=== PATIENT | female | born 1970 | race Caucasian/White ===

== ENCOUNTER 2017-09-05 07:28 | Day surgery (SDC) | payer MEDICAID ==
[2017-09-05] MEDS ORDERED: FENTAnyl 50 MCG/ML VIAL ×2 (09:57→14:34)
[2017-09-05] MEDS ORDERED: DEXAMETHASONE 4 MG/ML 1 ML INJ ×2 (10:11→14:13)
[2017-09-05] MEDS ORDERED: ONDANSETRON 4 MG INJ ×2 (10:12→14:13)
[2017-09-05 11:17] LABS: ADD MAN DIFF? NO
[2017-09-05 11:20] LABS: WHITE BLOOD COUNT 7.9 10^3/ul (4.8-10.8)
[2017-09-05 11:20] LABS: BASOPHILS % 0.4 % (0.0-2.0); EOSINOPHILS # 0.1 10^3/ul (0.0-0.5); HEMOGLOBIN 10.7 g/dl (12.0-16.0); LYMPHOCYTES # 2.7 10^3/ul (0.8-2.9); LYMPHOCYTES % 34.6 % (15.0-51.0); MEAN CORPUSCULAR HEMOGLOBIN 22.7 pg (29.0-33.0); MEAN CORPUSCULAR HGB CONC 31.5 g/dl (32.0-37.0); MEAN PLATELET VOLUME 9.3 fl (7.4-10.4); MONOCYTE # 0.4 10^3/ul (0.3-0.9); MONOCYTES % 5.5 % (0.0-11.0); NEUTROPHIL # 4.6 10^3/ul (1.6-7.5); NEUTROPHILS % 58.2 % (39.0-77.0); PLATELET COUNT 384 10^3/UL (140-415); RED BLOOD COUNT 4.72 10^6/ul (4.20-5.40); RED CELL DISTRIBUTION WIDTH 17.2 % (11.5-14.5)
[2017-09-05 11:38] LABS: ALANINE AMINOTRANSFERASE 23 IU/L (13-69); ALBUMIN 3.7 g/dl (3.3-4.9); ALBUMIN/GLOBULIN RATIO 0.97; ALKALINE PHOSPHATASE 74 IU/L (42-121); ANION GAP 14 (8-16); ASPARTATE AMINO TRANSFERASE 20 IU/L (15-46); BILIRUBIN,INDIRECT 0.3 mg/dl (0-1.1); BILIRUBIN,TOTAL 0.3 mg/dl (0.2-1.3); CARBON DIOXIDE 26 mmol/L (21-31); CHLORIDE 108 mmol/L (97-110); GLUCOSE 88 mg/dl (70-220); TOTAL PROTEIN 7.5 g/dl (6.1-8.1)
[2017-09-05 11:41] LABS: BLOOD UREA NITROGEN 11 mg/dl (7-20); CALCIUM 8.8 mg/dl (8.4-10.2); CREATININE 0.55 mg/dl (0.44-1.00); POTASSIUM 3.8 mmol/L (3.5-5.1); SODIUM 144 mmol/L (135-144)
[2017-09-05 11:59] LABS: INR 0.95; PROTIME 12.8 Sec (11.9-14.9)
[2017-09-05 12:00] LABS: PARTIAL THROMBOPLASTIN TIME 30.9 Sec (25.0-35.0)
[2017-09-05] MEDS ORDERED: PROPOFOL 20 ML (14:10)
[2017-09-05] MEDS ORDERED: MIDAZOLAM 1 MG/ML 2 ML INJ (14:10)
[2017-09-05] MEDS ORDERED: LIDOCAINE 2% (SDV) 5 ML INJ (14:10)
[2017-09-05] MEDS ORDERED: FAMOTIDINE 20 MG INJ (14:13)
[2017-09-05] MEDS ORDERED: CEFAZOLIN 1 GM INJ (14:13)
[2017-09-05] MEDS ORDERED: ACETAMINOPHEN 1000MG/100ML IV 100 ML (14:43)
[2017-09-05] MEDS: HYDROmorphONE (0.2 MG/ML) 10ML SYG IV (15:41)
== END 2017-09-05 17:00 | disposition home or self-care (01) ==
LOC: SDS 07:28
DX: N60.21 Fibroadenosis of right breast (principal); N60.11 Diffuse cystic mastopathy of right breast; D24.1 Benign neoplasm of right breast
CPT/HCPCS: 19120; 80053; 84703; 85025; 85610; 85730; 88307

== ENCOUNTER 2018-05-20 09:28 | Emergency (ER) | payer MEDICAID ==
[2018-05-20 10:33] LABS: ADD MAN DIFF? NO
[2018-05-20 10:34] LABS: BASOPHILS % 0.3 % (0.0-2.0); EOSINOPHILS # 0.1 10^3/ul (0.0-0.5); EOSINOPHILS % 0.7 % (0.0-7.0); HEMATOCRIT 33.2 % (37.0-47.0); HEMOGLOBIN 9.9 g/dl (12.0-16.0); LYMPHOCYTES # 2.7 10^3/ul (0.8-2.9); LYMPHOCYTES % 30.2 % (15.0-51.0); MEAN CORPUSCULAR HEMOGLOBIN 20.7 pg (29.0-33.0); MEAN CORPUSCULAR HGB CONC 29.8 g/dl (32.0-37.0); MEAN CORPUSCULAR VOLUME 69.3 fl (82.0-101.0); MEAN PLATELET VOLUME 9.7 fl (7.4-10.4); MONOCYTE # 0.6 10^3/ul (0.3-0.9); MONOCYTES % 6.8 % (0.0-11.0); NEUTROPHIL # 5.5 10^3/ul (1.6-7.5); NEUTROPHILS % 61.4 % (39.0-77.0); PLATELET COUNT 335 10^3/UL (140-415); RED BLOOD COUNT 4.79 10^6/ul (4.20-5.40); RED CELL DISTRIBUTION WIDTH 18.4 % (11.5-14.5)
[2018-05-20 10:34] LABS: WHITE BLOOD COUNT 8.9 10^3/ul (4.8-10.8)
[2018-05-20 10:55] LABS: ANION GAP 11 (5-13); BLOOD UREA NITROGEN 10 mg/dl (7-20); CALCIUM 9.4 mg/dl (8.4-10.2); CARBON DIOXIDE 25 mmol/L (21-31); CHLORIDE 105 mmol/L (97-110); CREATININE 0.52 mg/dl (0.44-1.00); Estimated GFR > 60 mL/min (>60); GLUCOSE 129 mg/dl (70-220); POTASSIUM 3.8 mmol/L (3.5-5.1); SODIUM 141 mmol/L (135-144)
[2018-05-20 10:56] LABS: D-DIMER 1281.27 ng/ml (<460)
[2018-05-20] MEDS: KETOROLAC 30 MG INJ IV (10:57)
[2018-05-20 11:06] LABS: TROPONIN-I < 0.012 ng/ml (0.000-0.120)
[2018-05-20] MEDS: SOD CHLORIDE 0.9% 1,000 ML IV (12:41)
[2018-05-20] MEDS: SOD CHLORIDE 0.9% 100 ML (13:10)
[2018-05-20] MEDS: IOHEXOL 100 ML (13:11)
== END 2018-05-20 14:59 | disposition home or self-care (01) ==
LOC: E/R 14:59
DX: R07.89 Other chest pain (principal)
CPT/HCPCS: 36415; 71045; 71275; 80048; 81025; 84484; 85025; 85378; 93005; 96374; 99285-25